=== PATIENT | female | born 1960 | race Caucasian/White ===

== ENCOUNTER 2017-03-11 09:48 | Outpatient (CLI) | payer OTHER | END 2017-03-11 09:50 | LOC: LABRHC 09:48 | PROVIDERS: ATTEND Physician Assistant | DX: R31.9 Hematuria, unspecified (principal) | CPT/HCPCS: 87086 ==

== ENCOUNTER 2017-03-22 07:01 | Outpatient (CLI) | payer OTHER ==
[2017-03-22 07:22] LABS: BASOPHILS % 0.4 (0.0-1.5); EOSINOPHILS % 1.3 % (0.0-6.8); MEAN CORPUSCULAR HEMOGLOBIN 30.3 pg (28.0-34.0); MEAN CORPUSCULAR VOLUME 88.8 fl (80.0-100.0); MONOCYTES % 4.3 % (0.0-11.0); NEUTROPHILS # 5.9 # k/uL (1.4-7.7)
[2017-03-22 07:47] LABS: eGFR (African) > 60; eGFR (Non-African) > 60
[2017-03-22 21:31] LABS: T3-UPTAKE 34.6 % (25.4-41.2)
== END 2017-03-22 07:02 ==
LOC: LAB 07:01
PROVIDERS: ATTEND Physician Assistant
DX: R10.11 Right upper quadrant pain (principal); E89.0 Postprocedural hypothyroidism
CPT/HCPCS: 36415; 80053; 84436; 84479; 85025

== ENCOUNTER 2017-03-27 08:02 | Outpatient (CLI) | payer OTHER ==
--- NOTE | 2017-03-27 14:06 | Diagnostic Imaging Report ---
SANTINO RM [facility] [address] [facility] [address] [place] [address]. [id number] Report Submission Date: Mar 27, 2017 9:02:12 AM CDT Patient Study Name: ANATOLIY JEWELL Date: Mar 27, 2017 8:21:57 AM CDT Modality Type: US Gender: F Description: US ABD LIMITED : 60 Institution: [facility] Physician: SANTINO RM Ultrasound abdomen History: RUQ PAIN, PATIENT STATES FEELS LIKE GALLBLADDER ATTACK BUT GALLBLADDER WAS REMOVED, NAUSEA Multiple grayscale and color Doppler images of the right upper quadrant are submitted Findings: Comparison: December 28, 2011 Visualized portions of the pancreas are within normal limits The liver is slightly heterogeneous in echotexture. It measures 20.3 cm, slightly increased from the prior study. Portal venous flow is antegrade to the liver. Common bile duct measures 8 mm proximally, 9 mm in its midportion and 1.1 cm distally The right kidney is normal in echotexture and measures 10.1 x 4.6 x 4.9 cm. No hydronephrosis. Impression: 1. Post cholecystectomy. Hepatomegaly. Hepatic steatosis. 2. Common bile duct is prominent measuring up to 1.1 cm in its distal portion, while this may be secondary to post cholecystectomy status, MRCP evaluation is suggested. Electronically signed on Mar 27, 2017 9:02:12 AM CDT by: Toyin GARCIA
== END 2017-03-27 08:03 ==
LOC: RAD 08:02
PROVIDERS: ATTEND Physician Assistant
DX: R73.9 Hyperglycemia, unspecified (principal); R14.0 Abdominal distension (gaseous); R10.11 Right upper quadrant pain
CPT/HCPCS: 36415; 76705; 83036; 86304

== ENCOUNTER 2017-03-29 07:31 | Outpatient (CLI) | payer OTHER ==
--- NOTE | 2017-03-29 13:51 | Diagnostic Imaging Report ---
SANTINO RM [facility] [address] [facility] [address] [place], [place]. [address] Report Submission Date: Mar 29, 2017 1:11:04 PM CDT Patient Study Name: ANATOLIY JEWELL Date: Mar 29, 2017 9:22:06 AM CDT Modality Type: CT\SR Gender: F Description: CT ABD & PELVIS W/ CON : 60 Institution: [facility] Physician: SANTINO RM Examination: CT Abdomen/pelvis History: Generalized abdominal discomfort Comparison exams: 25 April 2010 Technique: CT Abdomen/pelvis with oral and IV contrast. Findings: Liver demonstrates mild diffuse low attenuation. No central enhancing lesion. Spleen, adrenal glands are without abnormality. Surgical clips gallbladder fossa. Pancreas enhances symmetrically. Off the posterior margin a low density area measuring 2.5 cm - centered on image 22 of 84. Fat characteristics centrally. Abdominal aorta demonstrates peripheral atherosclerotic disease. No aneurysm. Small bowel mucosa and lumen are without gross irregularity. Stool throughout the large bowel limiting sensitivity. Sigmoid diverticulitis. No adjacent mesenteric inflammation or free fluid. Bilateral prosthetic device streak artifact obscures the pelvis. Osseous structures demonstrate degenerative changes. Lung bases without gross irregularity. Impression: No abdominal mass /inflammatory process. Possible lipoma adjacent to the mid pancreas - consider further evaluation with MRI if clinically warranted Sigmoid diverticulosis. No evidence for acute diverticulitis. Fatty liver Electronically signed on Mar 29, 2017 1:11:04 PM CDT by: Bandar GARCIA
== END 2017-03-29 07:32 ==
LOC: RAD 07:31
PROVIDERS: ATTEND Physician Assistant
DX: R10.9 Unspecified abdominal pain (principal)
CPT/HCPCS: 74177; Q9966; A9698

== ENCOUNTER 2017-04-03 07:18 | Outpatient (CLI) | payer OTHER ==
[2017-04-03 21:41] LABS: LIPASE 40 U/L (13-60)
== END 2017-04-03 07:20 ==
LOC: LAB 07:18
PROVIDERS: ATTEND Physician Assistant
DX: R10.84 Generalized abdominal pain (principal)
CPT/HCPCS: 36415; 82150; 83690

== ENCOUNTER 2017-05-06 11:12 | Day surgery (SDC) | payer OTHER ==
[~2017-05-06 11:12] MED LIST: LACTATED RINGERS 1,000 ML IV.SOLN IV ONE; LIDOCAINE HCL/PF 2% 100 MG/5 ML VIAL IJ ONE; PROPOFOL 500 MG/50 ML VIAL IV ONE; SALINE FLUSH 10 ML DISP.SYRIN IVF ONE
--- NOTE | 2017-05-07 10:43 | GI Report ---
REFERRING PHYSICIAN: Dr. Catrachita Landry FORGING MACHINE OPERATOR: Nicola Herron MD PROCEDURE MEDICATION: Propofol as per anesthesia. INDICATIONS: This 56-year-old woman is referred for a screening colonoscopy. She had one done in 2004, a little over 10 years ago. She occasionally has some discomfort in her left lower quadrant but no blood in the stool. She has had bilateral hip replacements. She did have a CAT scan of the abdomen on March 29, 2017, because of pain. She has had a previous cholecystectomy. She does have diverticular disease and also had a fatty liver by CAT scan and also confirmed by ultrasound. She does have a family history of diabetes. She is 5 feet 1 inch and weighs 230 pounds and carries the weight centrally. PROCEDURE PERFORMED: Colonoscopy. PROCEDURE: An Olympus video colonoscope was advanced to the rectum. She does have extensive diverticular disease in the sigmoid and descending colon. No obvious diverticula. The colonoscope is slowly advanced all the way to the cecum. The appendiceal orifice and terminal ileum were normal. On slow withdrawal, the cecum, ascending colon, and transverse colon with no obvious intraluminal lesions noted. The descending colon and sigmoid with extensive diverticular disease but no obvious diverticulitis. Retroflexion of the rectum was normal. Patient tolerated the procedure well. FINDINGS: Extensive diverticular disease of the sigmoid and descending colon. RECOMMENDATIONS: 1. I would add a fiber supplement like Citrucel or Benefiber daily. 2. Try to have more fruits and vegetables and fiber in the diet. 3. Try to decrease glycemic carbohydrates and sugars. 4. Some studies suggest that a 20-pound weight loss and exercise 30 minutes daily may help take the fat out of the liver in liver steatosis. 5. Consider re-looking at her colon within 10 years unless clinically indicated. cc: Dr. Catrachita GARCIA
== END 2017-05-06 11:13 ==
LOC: OPSURG 11:12
PROVIDERS: ATTEND Internal Medicine Gastroenterology
DX: Z12.11 Encounter for screening for malignant neoplasm of colon (principal); K57.30 Diverticulosis of large intestine without perforation or abscess without bleeding; R10.32 Left lower quadrant pain; K76.0 Fatty (change of) liver, not elsewhere classified; Z90.49 Acquired absence of other specified parts of digestive tract; Z80.0 Family history of malignant neoplasm of digestive organs; Z83.3 Family history of diabetes mellitus; Z68.41 Body mass index [BMI] 40.0-44.9, adult
CPT/HCPCS: J2001; J2704; J7120; 45378; S1016

== ENCOUNTER 2019-05-07 08:17 | Outpatient (CLI) | payer OTHER ==
[2019-05-07 08:47] LABS: eGFR (Non-African) > 60
[2019-05-07 08:48] LABS: HDL 58 mg/dL (>40)
== END 2019-05-07 08:19 ==
LOC: LAB 08:17
PROVIDERS: ATTEND Family Medicine
DX: Z00.00 Encounter for general adult medical examination without abnormal findings (principal)
CPT/HCPCS: 36415; 80053; 80061

== ENCOUNTER 2019-07-01 10:11 | Outpatient (CLI) | payer OTHER ==
--- NOTE | 2019-07-02 14:23 | Diagnostic Imaging Report ---
HIRA DURAN [facility] [address] [facility] [address] [address] Report Submission Date: Jul 01, 2019 10:34:36 AM CDT Patient Study Name: ANATOLIY JEWELL Date: Jul 01, 2019 10:13:47 AM CDT Modality Type: DX Gender: F Description: CHEST 2VIEW : 60 Institution: [facility] Physician: HIRA DURAN Chest two views Indication: skin cancer Findings: 2 views of the chest without prior shows no consolidation, pleural effusion or pneumothorax. The heart size is normal. Degenerative changes of the thoracic spine are present. Impression: No acute pulmonary disease Electronically signed on Jul 01, 2019 10:34:36 AM CDT by: Yuval GARCIA
== END 2019-07-01 10:13 ==
LOC: RAD 10:11
PROVIDERS: ATTEND Family Medicine
DX: Z12.4 Encounter for screening for malignant neoplasm of cervix (principal); C44.90 Unspecified malignant neoplasm of skin, unspecified
CPT/HCPCS: 71046; 88148; G0143